=== PATIENT | male | born 2000 | race Caucasian/White ===

== ENCOUNTER 2019-07-12 07:45 | Outpatient (CLI) | payer OTHER, SELFPAY ==
--- NOTE | 2019-07-12 08:03 | MR_ITS ---
WS: [id number] MRI LEFT thigh, noncontrast. HISTORY: Knee pain after running. Possible hamstring injury. COMPARISON: LEFT knee MRI performed on the same day. Multiplanar, multisequence imaging has been submitted. Proximal attachment of the hamstrings to the ischial appears normal. There is no fluid or avulsion fr acture. Distal biceps femoris muscle and tendon are abnormal. As the biceps femoris tapers distally there is edema within the muscle extending over length of 10 cm. At the myotendinous insertion site distally there is increase fluid like signal which corresponds to the area of pain. There is a large amount of fluid consistent with a very high-grade tear at the myotendinous insertion. This corresponds to the area of pain. The distal short head of the biceps femoris tendon as it attaches to the fibular head i s normal. There is not a significant amount of retraction of the tendon. MR/MR lower leg LT wo con* [id number] IMPRESSION: 1. High-grade tear at the distal myotendinous junction of the biceps femoris te ndon with adjacent muscle edema. Minimal retraction at the site of tear. 2. Normal attachment of the short head of the biceps femoris tendon at the fibu lar head.
--- NOTE | 2019-07-12 08:08 | MR_ITS ---
WS: [id number] MRI LEFT KNEE HISTORY: LT KNEE PAIN COMPARISON: None available. Anterior cruciate ligament: Intact. Posterior cruciate ligament: Intact. Medial collateral ligament: Intact. Posterior lateral corner structures: Intact. Medial menisci: Intact. Normal signal, size and shape. Lateral meniscus: Intact. Normal signal, size and shape. Extensor mechanism: Distal quadriceps tendon and patellar tendons are intact. Fluid and soft tissue: No joint effusion. No Ceja's cyst. Osseous and articular structures: Patellofemoral compartment: Normal. Medial compartment: Normal. Lateral compartment: Normal. There is increase fluid like signal superficially over the biceps femoris muscle and tendon at the le jannet of the distal femoral diaphysis to the lateral femoral condyle. Anterior tendon is intact. The po sterior myotendinous insertion site is no longer present and contains fluid. No muscle atrophy. Small amount of edema in the distal biceps femoris muscle. MR/MR knee LT wo con* [id number] IMPRESSION: 1. Edema adjacent to the biceps femoris muscle and tendon. High-grade tear inv olving the myotendinous insertion distally. Portion of the tendon remains intac t. Please see the MRI report RIGHT thigh for further details. 2. Otherwise the knee is negative.
== END 2019-07-12 07:46 | disposition home or self-care (01) ==
LOC: RADWPI 08:03
PROVIDERS: Visit Provider Orthopaedic Surgery
DX: S86.812A Strain of other muscle(s) and tendon(s) at lower leg level, left leg, initial encounter (principal); X58.XXXA Exposure to other specified factors, initial encounter; Y93.02 Activity, running; M25.562 Pain in left knee; R60.9 Edema, unspecified
CPT/HCPCS: 73718; 73721

== ENCOUNTER 2024-08-06 21:33 | Emergency (ER) | payer OTHER, SELFPAY ==
[2024-08-06 21:35] VITALS: BP 152/104; PULSE 74; RESP 14; TEMP 36.6; O2SAT 99; BMI 32.3
[2024-08-06 22:00] VITALS: BP 143/91; PULSE 80; RESP 18; O2SAT 97
[2024-08-06 22:05] LABS: Basophils # 0.1 10^3/uL (0.0-0.1); Basophils % 0.5 %; Eosinophils # 0.2 10^3/uL (0.0-0.8); Eosinophils % 1.4 %; Hematocrit 43.1 % (37-53); Mean Corpuscular HGB Conc 33.9 g/dL (30-55); Mean Corpuscular Hemoglobin 27.9 pg (27-33); Mean Corpuscular Volume 82.4 fl (82-101); Monocytes # 0.9 10^3/uL (0.2-0.9); Monocytes % 7.7 %; Neutrophils # 4.19 10^3/uL (1.8-7.7); Neutrophils % 37.3 %; Nucleated Red Blood Cells % 0 %; Platelet Count 281 10^3/cmm (157-399); Red Blood Count 5.23 10^6/uL (3.85-5.65); Red Cell Distribution Width 13.5 % (12.1-15.1); White Blood Count 11.26 10^3/uL (3.29-11.43)
[2024-08-06 22:21] LABS: Alanine Aminotransferase 67 U/L (0-41); Albumin Level 4.8 g/dL (3.5-5.2); Alkaline Phosphatase 65 U/L (40-130); Anion Gap 17.6 (5-19); Aspartate Amino Transferase 30 U/L (0-40); Blood Urea Nitrogen 18 mg/dL (6-20); Calcium 9.4 mg/dL (8.5-10.5); Carbon Dioxide 23 mmol/L (22-29); Chloride 102 mmol/L (98-107); Creatinine Clr Calc Pharmacy 103.0667; Globulin 2.8 g/dL (1.3-4.6); Glomerular Filtration Rate 66.7 mL/min (90-130); Glucose 94 mg/dL (65-115); Lipase 14 U/L (13-60); Osmolality Calculated 290 mOsm/kg (285-295); Potassium 3.6 mmol/L (3.5-5.1); Sodium 139 mmol/L (136-145); Total Bilirubin 0.3 mg/dL (0.15-1.2); Total Protein 7.6 g/dL (6.6-8.7)
[2024-08-06 22:29] LABS: Slide Review Slide Review Perform
--- NOTE | 2024-08-06 22:58 | CTR_ITS ---
PROCEDURE INFORMATION: Exam: CT Abdomen And Pelvis With Contrast Exam date and time: 08/06/2024 11:07 PM Age: 24 years old Clinical indication: Abdominal pain; Localized; Right lower quadrant (rlq); C/O rlq pain; Additional info: Rlq abdominal pain/tender TECHNIQUE: Imaging protocol: Computed tomography of the abdomen and pelvis with contrast. Radiation optimization: All CT scans at this facility use at least one of these dose optimization techniques: automated exposure control; mA and/or kV adjustment per patient size (includes targeted exams where dose is matched to clinical indication); or iterative reconstruction. Contrast material: OMNI 350; Contrast volume: 100 ml; Contrast route: INTRAVENOUS (IV); COMPARISON: No relevant prior studies available. RADIATION DOSE METRICS: Total DLP (mGy-cm): 999.23 FINDINGS: Lungs: Lingular atelectasis. Bilateral posterior lower lobe atelectasis. Heart: Heart size is within normal limits. There is no pericardial effusion or pericardial thickening. Liver: There is diffuse decreased attenuation of the hepatic parenchyma consistent with fatty infiltration. The liver is otherwise normal. There are no hepatic masses identified. Gallbladder and biliary ducts: The gallbladder is contracted. There is no ductal dilatation. Pancreas: The pancreas is normal. Spleen: The spleen is normal. Adrenal glands: The adrenal glands are normal. Kidneys and ureters: There is normal enhancement of the kidneys. No renal calcifications are identified. There is no hydronephrosis. Stomach and bowel: There is no large or small bowel obstruction. There is no evidence of bowel wall thickening. Appendix: A normal appendix is identified. Intraperitoneal space: Focal area of inflammatory change surrounding a small area of fat in the right lateral omentum with minimal thickening of the adjacent peritoneal reflection. No free fluid or fluid collections. No pneumoperitoneum. No other areas of inflammatory change. Vasculature: The aorta is normal in course and caliber. No significant atherosclerotic calcifications are present. Lymph nodes: No enlarged lymph nodes are identified. Urinary bladder: The bladder is unremarkable. Reproductive: The prostate is grossly unremarkable. Bones/joints: No acute osseous abnormalities are seen. Soft tissues: There is a small left inguinal hernia containing only fat. Small periumbilical hernia containing only fat. CT/CT abdomen pelvis w con* [id number] IMPRESSION: 1. Focal area of inflammatory change surrounding a small area of fat in the right lateral omentum with minimal thickening of the adjacent peritoneal reflection. Differential diagnosis includes epiploic appendagitis and small omental infarct. 2. Normal appendix.
--- NOTE | 2024-08-06 23:03 | W.ED.ABDPA2 ---
HPI - Abdominal Pain General: Chief Complaint: Abdominal Pain Stated Complaint: R Lower ABD Pain Time Seen by Provider: 08/06/24 21:39 Source: patient Mode of arrival: ambulatory Limitations: no limitations History of Present Illness: Patient is a 24-year-old male that presents to the emergency department with right lower abdominal pain. He states this began this morning and has been steadily getting worse. He states he has been moving houses states pain is worse when he bends and lifts. He does report some mild right-sided flank pain as well but denies any pain or burning with urination or any blood in his urine. He denies any history of kidney stones. The patient states that he still has his appendix and gallbladder. He denies any nausea or vomiting. He denies any fever or chills. He presents to the emergency department for further evaluation and treatment. He declines any pain medications at this time. Associated Symptoms: Denies chills, diarrhea, dysuria, fever(s), nausea and vomiting Related Data Allergies Allergy/AdvReac Type Severity Reaction Status Date / Time No Known Allergies Allergy Verified 08/06/24 21:40 Review of Systems Const: Denies: fever(s) or chills Eyes: Denies: eye redness ENMT: Denies: dry mouth Card: Denies: chest pain Resp: Denies: dyspnea, productive cough, non-productive cough or wheezing GI: Reports: abdominal pain (Right lower quadrant); Denies: nausea, vomiting or diarrhea : Reports: flank pain (Mild right flank); Denies: dysuria, urinary frequency or urinary hesitancy Musc: Reports: back pain (Mild right flank); Denies: neck pain, extremity pain or extremity swelling Skin/Breast: Denies: rash or erythema Neuro: Denies: numbness in extremities or weakness in extremities Psych: Denies: anxiety or depression Endo: Denies: polyuria or polydipsia Jerry/Lymph: Denies: petechiae All/Imm: Denies: urticaria, throat swelling or tongue swelling PFS ED PFSH: Medical History (Updated 08/07/24 @ 00:11 by NIKO Bright) No pertinent past medical history Surgical History (Updated 08/06/24 @ 23:06 by NIKO Bright) No pertinent past surgical history Social History (Updated 08/06/24 @ 23:07 by NIKO Bright) Smoking and tobacco/nicotine status: never used tobacco/nicotine Physical Exam Const: COMMON NORMALS: no acute distress and alert GENERAL APPEARANCE: cooperative ORIENTATION/CONSCIOUSNESS: Yes awake HENMT: COMMON NORMALS: normocephalic, atraumatic, EAC's normal, TM's normal bilaterally and Normal external nose present HEAD & SCALP: normocephalic and atraumatic NOSE: Normal external nose present EXTERNAL AUDITORY CANAL: EAC's normal TYMPANIC MEMBRANE: TM's normal bilaterally MOUTH: Normal oral and palatal mucosa present Eye: COMMON NORMALS: conjunctivae normal CONJUNCTIVA: Yes conjunctivae normal Neck/C-Spine: COMMON NORMALS: full ROM Resp: COMMON NORMALS: normal respiratory effort, No retractions and clear to auscultation bilaterally AUSCULTATION: clear to auscultation bilaterally, no crackles, no rales, no rhonchi and no wheezes GI: COMMON NORMALS: Soft to palpation and no bruits PALPATION: Yes Soft to palpation, Yes Tenderness to palpation present (GI) Details: RLQ and RUQ (Mild but worse in the right lower quadrant), No Guarding due to palpation present (GI) and No Rebound tenderness present RECTAL EXAM: Yes deferred : COMMON NORMALS: Yes no CVA tenderness BLADDER/KIDNEY EXAM: Yes no CVA tenderness Back/Pelvis: COMMON NORMALS: no CVA tenderness THORACIC SPINE/UPPER BACK: No ROM limited and Yes pain with ROM (Mild right mid back pain with movement) Extremity: COMMON NORMALS: normal to inspection, full ROM, no calf tenderness and no pedal edema Neuro: COMMON NORMALS: moves all extremities, no focal motor deficits and no sensory deficits noted SENSORIUM/ORIENTATION: Yes alert SPEECH: speech normal Psych: COMMON NORMALS: cooperative and speech normal ATTITUDE: Yes calm SPEECH: Yes normal speech Skin: COMMON NORMALS: no rashes or lesions noted GENERAL SKIN EXAM: no rashes or lesions noted Course ED course: I discussed case with Dr. Jordan. He recommended [id number] Tylenol or ibuprofen to help with the symptoms and close follow-up. Reevaluation(s): Reevaluation #1: Patient was advised of the exam, lab and imaging findings. Thankfully, the patient has a normal-looking appendix but there is some inflammation that may represent epiploic appendagitis. The patient is afebrile with a normal pulse rate and normal oxygen saturation at this time. He continues to decline any pain medications. Time: 00:05 Vital Signs: Vital signs: Vital Signs Temperature 97.9 F 08/06/24 21:35 Pulse Rate 87 08/06/24 23:30 Respiratory Rate 18 08/06/24 23:30 Blood Pressure 135/93 08/06/24 23:30 Pulse Oximetry 95 08/06/24 23:30 Oxygen Delivery Me thod Room Air 08/06/24 21:35 MDM - Abdominal Pain Medical Decision Making Patient is a 24-year-old male that presented to the emergency department with right sided abdominal pain. He states he still has his gallbladder and his appendix. He does not have an elevated white blood cell count at this time but it is on the high end of normal. Patient does have some tenderness in the right abdomen that is worse in the right lower quadrant but no guarding or rebound tenderness. CT scan was obtained that shows a normal appendix. There is some inflammatory changes around a small area of fat in the right lateral omentum with minimal thickening of the adjacent peritoneal reflection. This may be epiploic appendagitis or a small omental infarct. Patient was advised to use [id number] Tylenol or ibuprofen as directed for pain, avoid activities make the pain worse follow-up with local doctor for further evaluation and treatment. I also advised that he return to the emergency department with any worsening symptoms. Patient expressed understanding. Differential Diagnosis Likely abdominal pain, acute appendicitis, constipation and small bowel obstruction Lab Data I reviewed the patient's lab results. 08/06/24 22:00 08/06/24 22:00 Labs/Radiology: Radiology Impressions Abdomen/Pelvis CT 08/06/24 22:58 IMPRESSION: 1. Focal area of inflammatory change surrounding a small area of fat in the right lateral omentum with minimal thickening of the adjacent peritoneal reflection. Differential diagnosis includes epiploic appendagitis and small omental infarct. 2. Normal appendix. Laboratory Results WBC 11.26 10^3/uL (3.29-11.43) 08/06/24 22:00 RBC 5.23 10^6/uL (3.85-5.65) 08/06/24 22:00 Hgb 14.60 g/dL (11.27-16.99) 08/06/24 22:00 Hct 43.1 % (37-53) 08/06/24 22:00 MCV 82.4 fl (82-101) 08/06/24 22:00 MCH 27.9 pg (27-33) 08/06/24 22:00 MCHC 33.9 g/dL (30-55) 08/06/24 22:00 RDW 13.5 % (12.1-15.1) 08/06/24 22:00 Plt Count 281 10^3/cmm (157-399) 08/06/24 22:00 MPV 10.0 fL (7.4-10.4) 08/06/24 22:00 Neut % (Auto) 37.3 % 08/06/24 22:00 Lymph % (Auto) 53.0 % 08/06/24 22:00 Wharton % (Auto) 7.7 % 08/06/24 22:00 Eos % (Auto) 1.4 % 08/06/24 22:00 Baso % (Auto) 0.5 % 08/06/24 22:00 Neut # (Auto) 4.19 10^3/uL (1.8-7.7) 08/06/24 22:00 Lymph # (Auto) 6.0 10^3/uL (0.8-4.8) H 08/06/24 22:00 Wharton # (Auto) 0.9 10^3/uL (0.2-0.9) 08/06/24 22:00 Eos # (Auto) 0.2 10^3/uL (0.0-0.8) 08/06/24 22:00 Baso # (Auto) 0.1 10^3/uL (0.0-0.1) 08/06/24 22:00 Nucleated RBC % (auto) 0 % 08/06/24 22:00 Nucleated RBCs # 0.0 /100WBC 08/06/24 22:00 Sodium 139 mmol/L (136-145) 08/06/24 22:00 Potassium 3.6 mmol/L (3.5-5.1) 08/06/24 22:00 Chloride 102 mmol/L (98-107) 08/06/24 22:00 Carbon Dioxide 23 mmol/L (22-29) 08/06/24 22:00 Anion Gap 17.6 (5-19) 08/06/24 22:00 BUN 18 mg/dL (6-20) 08/06/24 22:00 Creatinine 1.3 mg/dL (0.7-1.2) H 08/06/24 22:00 GFR Calculation 66.7 mL/min (90-130) L 08/06/24 22:00 Glucose 94 mg/dL (65-115) 08/06/24 22:00 Calculated Osmolality 290 mOsm/kg (285-295) 08/06/24 22:00 Calcium 9.4 mg/dL (8.5-10.5) 08/06/24 22:00 Total Bilirubin 0.3 mg/dL (0.15-1.2) 08/06/24 22:00 AST 30 U/L (0-40) 08/06/24 22:00 ALT 67 U/L (0-41) H 08/06/24 22:00 Alkaline Phosphatase 65 U/L (40-130) 08/06/24 22:00 Total Protein 7.6 g/dL (6.6-8.7) 08/06/24 22:00 Albumin 4.8 g/dL (3.5-5.2) 08/06/24 22:00 Globulin 2.8 g/dL (1.3-4.6) 08/06/24 22:00 Lipase 14 U/L (13-60) 08/06/24 22:00 Urine Color Yellow (Yellow) 08/06/24 23:01 Urine Appearance Clear (CLEAR) 08/06/24 23:01 Urine pH 6.0 (5-7) 08/06/24 23:01 Ur Specific Aurelia 1.025 (1.005-1.030) 08/06/24 23:01 Urine Protein Negative (Negative) 08/06/24 23:01 Urine Glucose (UA) Negative (Normal) 08/06/24 23: Urine Ketones Trace (Negative) 08/06/24 23: Urine Blood Negative (Negative) 08/06/24 23: Urine Nitrate Negative (Negative) 08/06/24 23:01 Urine Bilirubin Negative (Negative) 08/06/24 23: Urine Urobilinogen 1.0 mg/dL (Negative) 08/06/24 23:01 Ur Leukocyte Esterase Negative (Negative) 08/06/24 23:01 Urine RBC 0-2 /hpf (0-2) 08/06/24 23:01 Urine WBC 0-5 /hpf (0-5) 08/06/24 23:01 Ur Squamous Epith Cells 0-5 /hpf (0-5) 08/06/24 23:01 Amorphous Sediment Not Reportable 08/06/24 23:01 Urine Bacteria None seen /hpf (NONE) 08/06/24 23:01 Hyaline Casts 0-4 /lpf H 08/06/24 23:01 All radiology interpretation(s) finalized by discharge Critical Care Time Critical Care Time: Critical Care Time: No Discharge Plan Discharge Patient Disposition: Home Clinical Impression: Epiploic appendagitis Condition: Stable Discharge Orders: Discharge ED (Routine); Ordered 08/07/24 Ordered By: Narinder Moreno Referrals: [facility], [Family Provider] - Discharge Diet: Usual diet Discharge Activity: Limit activity as instructed Patient Instructions: Opioid Safety, Pain Management, Epiploic Appendagitis (ED) Activity Restrictions/Additional Instructions: Take [id number] Tylenol or ibuprofen as directed for pain if needed. Rest, increase fluids. Follow-up with a local doctor for further evaluation in 1 to 2 weeks. Avoid activities that make the pain worse such as bending, lifting, stretching etc. Return to the emergency department with any worsening symptoms such as increased pain, fever, vomiting or any other worsening symptoms. 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
[2024-08-06] MEDS: iohexol 350 mg/mL 500 mL Btl (per mL) IV (23:13)
[2024-08-06 23:30] VITALS: BP 135/93; PULSE 87; RESP 18; O2SAT 95
[2024-08-06 23:36] LABS: Bilirubin Urine Negative (Negative); Blood Urine Negative (Negative); Glucose Urine UA Negative (Normal); Ketones Urine Trace (Negative); Leukocyte Esterase Urine Negative (Negative); Nitrate Urine Negative (Negative); Protein Urine Negative (Negative); Specific Gravity, Urine 1.025 (1.005-1.030); Urine Appearance Clear (CLEAR); Urine Color Yellow (Yellow)
[2024-08-06 23:41] LABS: Add Urine Microscopic? YES; Bacteria Urine None Seen /hpf; Hyaline Casts Urine 0-4 /lpf; RBC Urine 0-2 /hpf (0-2); Squamous Epithelial Cell Urine 0-5 /hpf (0-5); WBC Urine 0-5 /hpf (0-5)
== END 2024-08-07 00:26 | disposition home or self-care (01) ==
PROVIDERS: Emergency Medicine; Emergency Provider Physician Assistant
DX: K63.89 Other specified diseases of intestine (principal)
CPT/HCPCS: 12345; 74177; 80053; 81001; 83690; 85025; 99285